=== PATIENT | female | born 1995 | race African-American/Black ===

== ENCOUNTER 2021-09-13 10:01 | Emergency (ER) | payer OTHER ==
[~2021-09-13] VITALS: Ht 167.6 cm; Wt 77.3 kg
[2021-09-13] MEDS ORDERED: AMOX500C PO (10:11)
[2021-09-13] MEDS ORDERED: PERCOCET PO (10:11)
[2021-09-13] MEDS ORDERED: IBUP1TAB6 PO (10:11)
[2021-09-13] MEDS ORDERED: KETOROLAC 30 MG/ML 1ML VIAL IM ONE (11:25)
[2021-09-13 12:04] VITALS: BP 130/86
[2021-09-14] MEDS ORDERED: CLEO300C2 PO (15:20)
[2021-09-14] MEDS ORDERED: CLEO150C PO (15:20)
== END 2021-09-13 12:04 | disposition home or self-care (01) ==
LOC: M ED 10:01
DX: R22.0 Localized swelling, mass and lump, head (principal); K08.89 Other specified disorders of teeth and supporting structures
CPT/HCPCS: 96372; 99283; J1885

== ENCOUNTER 2021-09-14 12:17 | Emergency (ER) | payer OTHER ==
[~2021-09-14] VITALS: Ht 167.6 cm; Wt 77.3 kg
[~2021-09-14 12:17] MED LIST: AMOX500C PO; IBUP1TAB6 PO; PERCOCET PO
[2021-09-14 12:19] VITALS: BP 143/98
[2021-09-14] MEDS ORDERED: CLEO300C2 PO (15:20)
[2021-09-14] MEDS ORDERED: CLEO150C PO (15:20)
== END 2021-09-14 15:31 | disposition home or self-care (01) ==
LOC: M ED 12:17
DX: R68.84 Jaw pain (principal); T36.0X5A Adverse effect of penicillins, initial encounter

== ENCOUNTER 2021-10-10 09:43 | Emergency (ER) | payer OTHER ==
[~2021-10-10] VITALS: Ht 167.6 cm; Wt 78.9 kg
[~2021-10-10 09:43] MED LIST changes: +CLEO150C PO; +CLEO300C2 PO
[2021-10-10] MEDS ORDERED: ONDA4TAB6 PO (12:06)
[2021-10-10 12:11] VITALS: BP 132/90
== END 2021-10-10 12:20 | disposition home or self-care (01) ==
LOC: M ED 09:43
DX: R11.2 Nausea with vomiting, unspecified (principal); R19.7 Diarrhea, unspecified; Z88.1 Allergy status to other antibiotic agents

== ENCOUNTER → 2022-06-20 | Outpatient (CLI) | payer OTHER ==
[~2022-06-20] MED LIST changes: +ONDA4TAB6 PO
== END ==
LOC: M RAD 10:35
PROVIDERS: ATTEND Orthopaedic Surgery
DX: M25.561 Pain in right knee (principal)

== ENCOUNTER 2022-08-03 09:43 | Day surgery (SDC) | payer OTHER ==
[~2022-08-03] VITALS: Ht 167.6 cm; Wt 82.0 kg
[~2022-08-03 09:43] MED LIST changes: +TRANEXAMIC ACID 100 MG/ML 10ML VIAL IV ONE; +oxyCODONE 5MG TAB PO ONE
[2022-08-03] MEDS ORDERED: MIDAZOLAM INJ 2MG/2ML VIAL As Ordered ONE (09:51)
[2022-08-03] MEDS ORDERED: fentaNYL 100 MCG/2 ML INJECTION As Ordered ONE ×2 (09:51→16:35)
[2022-08-03] MEDS ORDERED: LIDOCAINE 2% 100MG/5ML SDV (FOR ANES.) As Ordered ONE (09:52)
[2022-08-03] MEDS ORDERED: propofoL 200 MG/20 ML VIAL As Ordered ONE (09:52)
[2022-08-03] MEDS ORDERED: ONDANSETRON 4MG 2ML VIAL As Ordered ONE (09:53)
[2022-08-03] MEDS ORDERED: HYDROMORPHONE HCL 0.5 MG/ 0.5 ML SYRINGE IV PRN ×2 (10:05→19:30)
[2022-08-03] MEDS ORDERED: ONDANSETRON 4MG 2ML VIAL IV PRN ×2 (10:05→19:30)
[2022-08-03] MEDS ORDERED: fentaNYL 100 MCG/2 ML INJECTION IV PRN ×2 (10:05→19:30)
[2022-08-03] MEDS ORDERED: LR 1,000 ML IV SCH ×2 (10:05→19:30)
[2022-08-03] MEDS ORDERED: oxyCODONE 5MG TAB PO PRN ×2 (10:05→19:30)
[2022-08-03] MEDS ORDERED: EPINEPHrine INJ 1 MG/ML 1ML AMP PN ONE (10:35)
[2022-08-03] MEDS ORDERED: LIDOCAINE 1% SDV 5ML VIAL PN ONE (10:35)
[2022-08-03] MEDS ORDERED: ROPIvacaine 0.5% 30ML VIAL PN ONE (10:35)
[2022-08-03] MEDS: fentaNYL 100 MCG/2 ML INJECTION IV PRN ×2 (10:53→10:57)
[2022-08-03] MEDS: MIDAZOLAM INJ 2MG/2ML VIAL IV PRN (10:53)
[2022-08-03] MEDS ORDERED: ROCURONIUM BROMIDE 50MG/5ML VIAL As Ordered ONE ×2 (14:37→16:38)
[2022-08-03] MEDS ORDERED: ceFAZolin 1GM VIAL As Ordered ONE (14:46)
[2022-08-03] MEDS ORDERED: ROPIvacaine 0.5% 30ML VIAL As Ordered ONE (14:47)
[2022-08-03] MEDS ORDERED: TRANEXAMIC ACID 100 MG/ML 10ML VIAL As Ordered ONE (14:50)
[2022-08-03] MEDS ORDERED: ceFAZolin 2 GM/D5W 50 ML IV BAG As Ordered ONE ×2 (14:51→18:44)
[2022-08-03] MEDS ORDERED: EPINEPHrine 1MG/ML INJ 30ML MD-VIAL As Ordered ONE (15:21)
[2022-08-03] MEDS ORDERED: ACETAMINOPHEN 1000MG 100ML IV BAG As Ordered ONE (18:08)
[2022-08-03] MEDS ORDERED: SUGAMMADEX SODIUM 500 MG/5 ML VIAL (BRIDION) As Ordered ONE (18:34)
[2022-08-03] MEDS ORDERED: BUPIVACAINE LIPOSOME/PF 1.3% 20ML VIAL (13.3MG/ML)(EXPAREL) As Ordered ONE (18:44)
[2022-08-03] MEDS ORDERED: BUPIVACAINE HCL 0.25% 30ML VIAL As Ordered ONE (18:49)
[2022-08-03] MEDS ORDERED: BUPIVACAINE HCL 0.5% 30ML VIAL As Ordered ONE (18:49)
[2022-08-03] MEDS ORDERED: PERC10TA26 PO (19:28)
[2022-08-03] MEDS ORDERED: ASPI81CH33 PO (19:32)
[2022-08-03 20:52] VITALS: BP 147/89
== END 2022-08-03 21:17 | disposition home or self-care (01) ==
LOC: M SDC 09:43
PROVIDERS: ATTEND Orthopaedic Surgery
DX: S83.241A Other tear of medial meniscus, current injury, right knee, initial encounter (principal); S83.511A Sprain of anterior cruciate ligament of right knee, initial encounter; X58.XXXA Exposure to other specified factors, initial encounter; Y92.89 Other specified places as the place of occurrence of the external cause; Z88.0 Allergy status to penicillin
CPT/HCPCS: 29882; 29888; 81025; C1713; C1762; C1769; C9290; J0131; J0171; J0690; J1100; J2250; J2405; J2795; J3010; S0020

== ENCOUNTER → 2022-08-10 | Outpatient (CLI) | payer OTHER ==
[~2022-08-10] MED LIST changes: +ASPI81CH33 PO; +PERC10TA26 PO; -TRANEXAMIC ACID 100 MG/ML 10ML VIAL IV ONE; -oxyCODONE 5MG TAB PO ONE
== END ==
LOC: M SOG 15:36
PROVIDERS: ATTEND Orthopaedic Surgery
DX: M17.11 Unilateral primary osteoarthritis, right knee (principal); M25.461 Effusion, right knee; M23.611 Other spontaneous disruption of anterior cruciate ligament of right knee; Z98.890 Other specified postprocedural states

== ENCOUNTER → 2022-08-17 | Outpatient (CLI) | payer OTHER | LOC: M SOG 07:58 | PROVIDERS: ATTEND Orthopaedic Surgery | DX: M23.611 Other spontaneous disruption of anterior cruciate ligament of right knee (principal) ==

== ENCOUNTER → 2022-09-18 | Outpatient (CLI) | payer OTHER ==
[2022-09-18 18:41] LABS: SOURCE, BODY FLUID RT KNEE; SYNOVIAL FLUID COLOR RED (COLORLESS)
== END ==
LOC: M SOG 08:23
PROVIDERS: ATTEND Orthopaedic Surgery
DX: M23.611 Other spontaneous disruption of anterior cruciate ligament of right knee (principal); M23.321 Other meniscus derangements, posterior horn of medial meniscus, right knee

== ENCOUNTER → 2022-09-25 | Outpatient (CLI) | payer OTHER | LOC: M SOG 07:56 | PROVIDERS: ATTEND Orthopaedic Surgery | DX: Z47.89 Encounter for other orthopedic aftercare (principal) ==